=== PATIENT | female | born 1990 | race Caucasian/White ===

== ENCOUNTER 2018-01-13 07:42 | Emergency (ER) | payer OTHER ==
[~2018-01-13] VITALS: Ht 160 cm; Wt 95.3 kg
[~2018-01-13 07:42] MED LIST: ANTIVERT25 MG PO; CORTISPORIN OTI10 ML OT; DARVOCET-N 1001 EACH PO; HYDROCHLOROTH12.5 MG PO; HYDROCHLOROTHIA25 M1 PO; IBUPROFEN 600600 M1 PO; LISINOPRIL10 MG PO; NORCO 5-325 TA1 EACH PO; VALIUM2 MG PO
[2018-01-13] MEDS ORDERED: XANAX 0.25 MG0.25 MG PO (07:54)
[2018-01-13] MEDS ORDERED: DUEXIS 800-26.1 EACH PO (07:58)
[2018-01-13 08:40] VITALS: BP 136/66
== END 2018-01-13 08:41 | disposition home or self-care (01) ==
LOC: M.ERS 07:42
DX: F41.9 Anxiety disorder, unspecified (principal); I10 Essential (primary) hypertension

== ENCOUNTER 2018-02-24 16:40 | Emergency (ER) | payer OTHER ==
[~2018-02-24] VITALS: Ht 160 cm; Wt 104.3 kg
[~2018-02-24 16:40] MED LIST changes: +DUEXIS 800-26.1 EACH PO; +XANAX 0.25 MG0.25 MG PO
[2018-02-24] MEDS ORDERED: PENICILLIN V P500 MG PO (17:16)
[2018-02-24] MEDS ORDERED: ACETAMINOPHEN-1 EAC2 PO (17:16)
[2018-02-24 17:23] VITALS: BP 156/88
== END 2018-02-24 17:24 | disposition home or self-care (01) ==
LOC: M.ERS 16:40
DX: K08.89 Other specified disorders of teeth and supporting structures (principal); I10 Essential (primary) hypertension; F41.9 Anxiety disorder, unspecified

== ENCOUNTER 2018-04-23 00:53 | Emergency (ER) | payer OTHER ==
[~2018-04-23] VITALS: Ht 160 cm; Wt 99.8 kg
[~2018-04-23 00:53] MED LIST changes: +ACETAMINOPHEN-1 EAC2 PO; +PENICILLIN V P500 MG PO
[2018-04-23 01:32] LABS: ABSOLUTE EOSINOPHILS 0.1 thou/uL (0.0-0.7); ABSOLUTE LYMPHOCYTES 2.3 thou/uL (0.8-5.3); ABSOLUTE MONOCYTES 0.4 thou/uL (0.0-1.2); ABSOLUTE NEUTROPHILS 2.8 thou/uL (1.6-8.1); BASOPHILS 0.3 %; EOSINOPHILS 2.1 %; LYMPHOCYTES 41.1 %; MCH 25.1 pg (26.0-34.0); MCHC 32.4 g/dL (28.0-37.0); MCV 77.4 fL (80.0-100.0); MONOCYTES 6.4 %; MPV 7.1 fl. (7.2-11.1); NUCLEATED RBCS 0 /100WBC; PLATELET COUNT* 317 thou/uL (150-400); POLYS 50.1 %; RBC 4.39 mil/uL (4.20-5.00); RDW-CV 15.9 % (10.5-14.5); WBC 5.6 thou/uL (4.0-11.0)
[2018-04-23 01:35] LABS: URINE BILIRUBIN NEGATIVE (Negative); URINE BLOOD 2+ (Negative); URINE CLARITY CLEAR; URINE COLOR YELLOW; URINE GLUCOSE-RANDOM NEGATIVE (Negative); URINE KETONES NEGATIVE (Negative); URINE LEUKOCYTES-REFLEX TRACE (Negative); URINE NITRITE-REFLEX NEGATIVE (Negative); URINE PROTEIN NEGATIVE (Negative); URINE UROBILINOGEN 0.2 E.U./dl (0.2-1.0)
[2018-04-23 01:36] LABS: AMP/METHAMP Negative (Negative); BARBITURATES Negative (Negative); BENZODIAZEPINES Negative (Negative); COCAINE Negative (Negative); METHADONE Negative (Negative); OPIATES Negative (Negative); PCP Negative (Negative); THC Negative (Negative)
[2018-04-23 01:38] LABS: CALCIUM 8.2 mg/dL (8.5-10.1); CREATININE 0.8 mg/dL (0.6-1.3)
[2018-04-23 01:42] LABS: ALBUMIN 3.3 g/dL (3.4-5.0); TOTAL BILIRUBIN 0.2 mg/dL (<0.1-1.0)
[2018-04-23 01:45] LABS: CASTS None Seen /LPF (None Seen); SQUAMOUS >10 Many /LPF (0-3)
[2018-04-23 01:46] LABS: CRYSTALS None Seen /LPF (None Seen); URINE RBC 3-10 Few /HPF (0-2); URINE WBC-REFLEX 6-15 Few /HPF (0-5)
[2018-04-23] MEDS ORDERED: ZOFRAN ODT4 MG PO (02:01)
[2018-04-23] MEDS ORDERED: MOTION RELIEF25 MG PO (02:01)
[2018-04-23] MEDS ORDERED: MACROBID 100 M100 M1 PO (02:01)
[2018-04-23 02:14] VITALS: BP 139/80
== END 2018-04-23 02:18 | disposition home or self-care (01) ==
LOC: M.ERS 00:53
PROVIDERS: Emergency Medicine
DX: N39.0 Urinary tract infection, site not specified (principal); R42 Dizziness and giddiness; I10 Essential (primary) hypertension; F41.9 Anxiety disorder, unspecified

== ENCOUNTER → 2018-09-13 | Outpatient (CLI) | payer OTHER ==
[~2018-09-13] MED LIST changes: +MACROBID 100 M100 M1 PO; +MOTION RELIEF25 MG PO; +ZOFRAN ODT4 MG PO
== END ==
LOC: M.RAD 14:05
DX: M43.12 Spondylolisthesis, cervical region (principal); M54.2 Cervicalgia; M25.511 Pain in right shoulder

== ENCOUNTER 2019-03-17 22:33 | Emergency (ER) | payer OTHER ==
[~2019-03-17] VITALS: Ht 160 cm; Wt 102.1 kg
[2019-03-17] MEDS ORDERED: BIRTH CONTROL (22:42)
[2019-03-17 22:59] LABS: ABSOLUTE EOSINOPHILS 0.1 thou/uL (0.0-0.7); ABSOLUTE LYMPHOCYTES 2.9 thou/uL (0.8-5.3); ABSOLUTE MONOCYTES 0.5 thou/uL (0.0-1.2); ABSOLUTE NEUTROPHILS 3.4 thou/uL (1.6-8.1); BASOPHILS 0.6 %; EOSINOPHILS 2.1 %; HEMATOCRIT 32.6 % (37.0-47.0); HEMOGLOBIN 10.2 gm/dL (12.0-15.0); LYMPHOCYTES 41.1 %; MCH 22.2 pg (26.0-34.0); MCHC 31.2 g/dL (28.0-37.0); MCV 71.2 fL (80.0-100.0); MONOCYTES 7.5 %; MPV 7.3 fl. (7.2-11.1); NUCLEATED RBCS 0 /100WBC; PLATELET COUNT* 341 thou/uL (150-400); POLYS 48.7 %; RBC 4.57 mil/uL (4.20-5.00); RDW-CV 19.3 % (10.5-14.5)
[2019-03-17 23:02] LABS: URINE BILIRUBIN NEGATIVE (Negative); URINE BLOOD NEGATIVE (Negative); URINE CLARITY CLEAR; URINE COLOR YELLOW; URINE GLUCOSE-RANDOM NEGATIVE (Negative); URINE KETONES NEGATIVE (Negative); URINE LEUKOCYTES-REFLEX TRACE (Negative); URINE NITRITE-REFLEX NEGATIVE (Negative); URINE PROTEIN NEGATIVE (Negative); URINE UROBILINOGEN 0.2 E.U./dl (0.2-1.0)
[2019-03-17 23:08] LABS: CALCIUM 8.3 mg/dL (8.5-10.1); CREATININE 0.9 mg/dL (0.6-1.3); POTASSIUM 3.5 mmol/L (3.5-5.1)
[2019-03-17 23:13] LABS: ALBUMIN 3.5 g/dL (3.4-5.0); TOTAL BILIRUBIN 0.2 mg/dL (<0.1-1.0); TOTAL PROTEIN 7.3 g/dL (6.4-8.2)
[2019-03-17 23:39] LABS: BACTERIA-REFLEX >30 Many /HPF (None Seen); CASTS None Seen /LPF (None Seen); CRYSTALS None Seen /LPF (None Seen); MUCUS 4-6 Moderate strn/LPF (None Seen); SQUAMOUS 4-10 Moderate /LPF (0-3); URINE RBC 0-2 Rare /HPF (0-2); URINE WBC-REFLEX 6-15 Few /HPF (0-5)
[2019-03-17] MEDS ORDERED: MACROBID 100 M100 M1 PO (23:57)
[2019-03-18 00:04] VITALS: BP 134/60
[2019-03-18 02:41] LABS: ANISOCYTOSIS 1+; HYPOCHROMASIA 2+; MICROCYTES 2+; POLYCHROMASIA Occasional
[2019-03-18 02:42] LABS: OVALOCYTES 1+
--- NOTE | 2019-03-19 12:39 | EKG ---
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1990 Requested By: Vani Paniagua Order Number: [id number] MD: Matt Jung Measurements Intervals [place] Rate: 95 P: 26 ID: 140 QRS: 11 QRSD: 92 T: 40 QT: 355 QTc: 447 Interpretive Statements Sinus rhythm Low voltage, precordial leads Borderline T abnormalities, anterior leads Compared to ECG 09/10/2010 14:40:25 Low QRS voltage now present T-wave abnormality now present Sinus arrhythmia no longer present Electronically Signed On 03-19-2019 12:39:19 CDT by Matt Jung [email or web address] <ELECTRONICALLY SIGNED> By: Matt Jung MD, [facility] 03/19/19 [id number] [id number] Matt Jung MD, [facility] /EPI
== END 2019-03-18 00:05 | disposition home or self-care (01) ==
LOC: M.ERS 22:33
PROVIDERS: Nurse Practitioner Family
DX: N39.0 Urinary tract infection, site not specified (principal); I10 Essential (primary) hypertension; F41.9 Anxiety disorder, unspecified

== ENCOUNTER → 2020-04-30 | Outpatient (CLI) | payer OTHER ==
[~2020-04-30] MED LIST changes: +BIRTH CONTROL
== END ==
LOC: M.ULTRA 11:30
PROVIDERS: ATTEND Nurse Practitioner Family
DX: N63.10 Unspecified lump in the right breast, unspecified quadrant (principal)